=== PATIENT | male | born 1960 | race Caucasian/White ===

== ENCOUNTER 2022-09-19 22:25 | Emergency (ER) | payer OTHER ==
[~2022-09-19] VITALS: Ht 177.8 cm; Wt 90.0 kg
[2022-09-19] MEDS ORDERED: ONDANSETRON HCL 4MG/2ML INJ IV STA (23:00)
[2022-09-19] MEDS ORDERED: SODIUM CHLORIDE 0.9% 1,000 ML IV ONE (23:00)
[2022-09-19 23:31] LABS: BASOPHILS % 0.3 % (0.0-2.0); EOSINOPHILS % 2.4 % (0.0-5.0); HEMATOCRIT. 34.1 % (42.0-52.0); HEMOGLOBIN. 12.1 g/dL (14.0-18.0); LYMPHOCYTES % 32.8 % (20.0-50.0); MEAN CORPUSCULAR HEMOGLOBIN 29.2 pg (28.0-32.0); MEAN CORPUSCULAR VOLUME 82.6 fL (80.0-94.0); MONOCYTES % 6.2 % (2.0-8.0); NEUTROPHILS % 58.3 % (40.0-76.0); PLATELET 170 x1000/uL (130-400); RED BLOOD CELL COUNT 4.12 mill/uL (4.7-6.1); RED CELL DISTRIBUTION WIDTH 13.9 % (11.6-14.6)
[2022-09-19 23:55] LABS: CHLORIDE 107 mEq/L (98-107)
[2022-09-20] MEDS ORDERED: LISI2.5T47 MT (02:29)
[2022-09-20] MEDS ORDERED: METF-874 PO (02:29)
[2022-09-20] MEDS ORDERED: TERA5CAP4 PO (02:29)
[2022-09-20] MEDS: SODIUM CHLORIDE 0.9% 1,000 ML IV NR (02:43)
[2022-09-20 04:00] VITALS: BP 126/74
== END 2022-09-20 07:03 | disposition short-term general hospital (02) ==
LOC: ER 22:25 → CANBEDREQ 09-20 07:31
DX: I95.9 Hypotension, unspecified (principal); R42 Dizziness and giddiness; Z20.822 Contact with and (suspected) exposure to COVID-19
CPT/HCPCS: 36415; 70450; 71045; 80053; 82962; 83605; 84484; 85025; 87426; 96361; 96374; 99291; C9803; J2405; J7030